=== PATIENT | female | born 1990 | race Caucasian/White ===

== ENCOUNTER 2023-05-30 12:50 | Emergency (ER) | payer SELFPAY ==
[2023-05-30] MEDS ORDERED: Metoclopramide HCl 10 MG/2 ML VIAL ONE (13:41)
[2023-05-30] MEDS ORDERED: diphenhydrAMINE 50 MG/ML VIAL ONE (13:41)
[2023-05-30] MEDS ORDERED: Cyclobenzaprine 10 MG TAB ONE (13:42)
[2023-05-30] MEDS ORDERED: Ketorolac Tromethamine 30 MG/ML VIAL ONE (13:42)
[2023-05-30] MEDS ORDERED: Magnesium 2 GM/50 ML BAG (IN WATER) ONE (15:34)
[2023-05-30] MEDS ORDERED: Dexamethasone 10 MG/ML VIAL ONE (16:49)
== END 2023-05-30 17:25 | disposition home or self-care (01) ==
LOC: CSHERS 12:50
DX: M54.12 Radiculopathy, cervical region (principal); R51.9 Headache, unspecified
CPT/HCPCS: 70450; 72125; 96365; 96366; 96368; 96375; J1100; J1200; J1885; J2765; J3475

== ENCOUNTER 2023-07-14 07:36 | Emergency (ER) | payer SELFPAY ==
[2023-07-14] MEDS ORDERED: methylPREDNISolone Sod Succ/PF 125 MG/2 ML VIAL ONE (08:47)
[2023-07-14 09:00] LABS: #Eosinphils 0.2 10x3/uL (0.0-0.5); #Monocytes 0.4 10x3/uL (0.0-1.1); #Neutrophils 1.9 10x3/uL (1.5-8.4); %Basophils 0.7 % (0.0-2.0); %Eosinophils 3.9 % (0.0-6.0); %Lymphocytes 40.8 % (18.0-47.0); %Monocytes 9.5 % (0.0-10.0); %Neutrophils 45.1 % (40.0-75.0); Hematocrit 37.9 % (34.9-44.5); Hemoglobin 12.4 g/dL (12.0-15.5); Mean Corpuscular HGB CONC 32.7 g/dL (32.0-36.0); Mean Corpuscular Hemoglobin 27.9 pg (27.0-33.0); Mean Corpuscular Volume 85.2 fl (81.6-98.3); Mean Platelet Volume 10.1 fl (7.4-10.4); Platelet Count 215 10x3/uL (150-450); RBC Distribution Width 14.3 % (11.5-14.5); Red Blood Cell (RBC) Count 4.45 10x6/uL (3.90-5.03); White Blood Cell (WBC) Count 4.3 10x3/uL (3.5-10.5)
[2023-07-14 09:06] LABS: BHCG - Serum Negative (NEGATIVE); Pregs Control Background? CLEAR/WHITE (CLR/WHITE); Pregs Control Bar Appear? YES (CONTROL BAR)
[2023-07-14] MEDS ORDERED: Prochlorperazine 10 MG/2 ML VIAL IVP SCH (09:15)
[2023-07-14 09:25] LABS: ALT (SGPT) 10 U/L (8-55); AST (SGOT) 13 U/L (5-34); Alkaline Phosphatase 46 U/L (40-110); Anion Gap 9 mmol/L (10-20); BUN (Urea Nitrogen) 13 mg/dL (7.0-18.7); Bilirubin, Total 0.3 mg/dL (0.2-1.2); CK (CPK) 52 U/L (29-168); Calc. Creatinine Clearance 0 mL/min (70-130); Calcium 8.8 mg/dL (7.8-10.44); Carbon Dioxide 24 mmol/L (22-29); Chloride 110 mmol/L (98-107); Estimated GFR 105; Globulin 2.8 g/dL (2.4-3.5); Glucose 94 mg/dL (70-105); Potassium 4.1 mmol/L (3.5-5.1); Protein, Total 6.8 g/dL (6.0-8.3); Sodium 139 mmol/L (136-145)
== END 2023-07-14 12:15 | disposition home or self-care (01) ==
LOC: CSHERS 07:36
DX: G44.221 Chronic tension-type headache, intractable (principal); G96.810 Intracranial hypotension, unspecified
CPT/HCPCS: 36415; 70551; 72141; 80053; 82550; 84703; 85025; 86140; 96361; 96365; 96375; J0780; J2930

== ENCOUNTER 2023-09-17 09:06 | Day surgery (SDC) | payer OTHER ==
[2023-09-17] MEDS ORDERED: Sodium Bicarbonate 2.5 MEQ/5 ML SDV ONE (09:21)
[2023-09-17] MEDS ORDERED: Lidocaine 1% PF 5 ML VIAL ONE (09:21)
[2023-09-17 10:43] VITALS: BP 112/62; TEMP 98.1
[2023-09-17] MEDS ORDERED: FLU VACC QS2023-24(6MOS UP)/PF 60 MCG/0.5 ML SYRINGE IM ONE (11:00)
== END 2023-09-17 11:20 | disposition home or self-care (01) ==
LOC: CSHRAD 09:06
PROVIDERS: ATTEND Neurological Surgery
PROC: B02BYZZ Computerized Tomography (CT Scan) of Spinal Cord using Other Contrast (ICD-10-PCS; principal; 2023-09-17)
DX: R51.9 Headache, unspecified (principal); G96.810 Intracranial hypotension, unspecified
CPT/HCPCS: 62305; 72126; 72129; 72132

== ENCOUNTER 2023-09-20 07:10 | Day surgery (SDC) | payer OTHER ==
[2023-09-20] MEDS ORDERED: Lidocaine 1% PF 5 ML VIAL ONE (07:55)
[2023-09-20] MEDS ORDERED: Sodium Bicarbonate 2.5 MEQ/5 ML SDV ONE (07:55)
[2023-09-20 09:26] VITALS: BP 107/55; TEMP 98.2
[2023-09-20] MEDS ORDERED: FLU VACC QS2023-24(6MOS UP)/PF 60 MCG/0.5 ML SYRINGE IM ONE (09:45)
[2023-09-20 09:46] LABS: CSF, Glucose 51 mg/dl (40-70); CSF, Protein 51 mg/dL (15-40)
== END 2023-09-20 09:41 | disposition home or self-care (01) ==
LOC: CSHRAD 07:10 → EDSTATUS 08:00 → CSHRAD 09:41
PROVIDERS: ATTEND Neurological Surgery
PROC: 00JU3ZZ Inspection of Spinal Canal, Percutaneous Approach (ICD-10-PCS; principal; 2023-09-20)
DX: R51.9 Headache, unspecified (principal); G96.810 Intracranial hypotension, unspecified
CPT/HCPCS: 62270; 82945; 84157; 87070; 87205

== ENCOUNTER 2023-10-14 10:09 | Outpatient (CLI) | payer OTHER | END 2023-10-14 10:10 | disposition home or self-care (01) | LOC: CSHMRI 10:09 | PROVIDERS: ATTEND Neurological Surgery | DX: G96.00 Cerebrospinal fluid leak, unspecified (principal); G95.89 Other specified diseases of spinal cord | CPT/HCPCS: 72146 ==